=== PATIENT | male | born 1955 | race Caucasian/White ===

== ENCOUNTER → 2020-08-12 14:46 | Outpatient (BNVA) | payer MEDICARE, SELFPAY | PROVIDERS: PCP Internal Medicine; Referring Provider Internal Medicine; Visit Provider Surgery Vascular Surgery | DX: T87.81 Dehiscence of amputation stump (principal); L97.419 Non-pressure chronic ulcer of right heel and midfoot with unspecified severity; Z89.512 Acquired absence of left leg below knee | CPT/HCPCS: 99212; 99213 ==

== ENCOUNTER → 2020-08-31 15:50 | Outpatient (BNVA) | payer MEDICARE, SELFPAY | PROVIDERS: PCP Internal Medicine; Visit Provider Surgery Vascular Surgery | DX: T81.89XD Other complications of procedures, not elsewhere classified, subsequent encounter (principal); S90.821D Blister (nonthermal), right foot, subsequent encounter; Z89.512 Acquired absence of left leg below knee | CPT/HCPCS: 99212 ==

== ENCOUNTER → 2020-09-28 11:52 | Outpatient (BNVA) | payer MEDICARE, SELFPAY | PROVIDERS: PCP Internal Medicine; Visit Provider Surgery Vascular Surgery | DX: L97.419 Non-pressure chronic ulcer of right heel and midfoot with unspecified severity (principal); Z89.512 Acquired absence of left leg below knee | CPT/HCPCS: 99212 ==

== ENCOUNTER → 2020-11-02 09:12 | Outpatient (BNVA) | payer MEDICARE, SELFPAY | PROVIDERS: PCP Internal Medicine; Visit Provider Surgery Vascular Surgery | DX: Z76.89 Persons encountering health services in other specified circumstances (principal) | CPT/HCPCS: 99212 ==

== ENCOUNTER → 2021-03-03 15:25 | Outpatient (BNVA) | payer MEDICARE, SELFPAY | PROVIDERS: PCP Internal Medicine; Visit Provider Surgery Vascular Surgery | DX: L97.419 Non-pressure chronic ulcer of right heel and midfoot with unspecified severity (principal); I73.9 Peripheral vascular disease, unspecified | CPT/HCPCS: 99212 ==

== ENCOUNTER 2021-04-07 14:24 | Outpatient (REF) | payer MEDICARE, SELFPAY ==
--- NOTE | ~2021-04-07 | US_ITS ---
EXAMINATION: US NONINVASIVE ASSESSMENT OF THE RIGHT LOWER EXTREMITY WITH ARTERIAL DUPLEX AND ANKLE BRACHIAL INDICES (ABIS) CLINICAL INFORMATION: Peripheral vascular disease unspecified COMPARISON: Ultrasound 06/03/2020 TECHNIQUE: Duplex Doppler techniques with waveform analysis and measurement of velocities in the common femoral, profunda femoris, superficial femoral, popliteal and tibial arteries were performed. In addition, ankle pulse volume recordings, ankle pressure measurements and ankle brachial indices were obtained of the right lower extremity arterial system. The study was performed only at rest. FINDINGS: NONINVASIVE ASSESSMENT OF THE ARTERIES OF RIGHT LOWER EXTREMITY WITH ABIs: Brachial blood pressure is measured as over 200. The technologist contacted the referring physician's office they are aware. RIGHT LEG: Ankle-brachial index: Uninterpretable secondary to vascular calcification. Ankle PVR: Dampened monophasic waveform. TANYA Reference: 0.9 - 1.4 = normal - no significant arterial disease 0.7 - 0.89 = mild peripheral arterial disease 0.51 - 0.69 = moderate peripheral arterial disease ? 0.50 = severe peripheral arterial disease On direct duplex there is prominent calcified plaque within the common femoral artery. RIGHT LOWER EXTREMITY DUPLEX ULTRASOUND: Common femoral artery (proximal to stenosis): 154 cm/s. Diastolic flow reversal: Present Common femoral artery (at stenosis): 241 cm/s. Diastolic flow reversal: Minimal to none Common femoral artery (distal to the stenosis): 144 cm/s Diastolic flow reversal: Absent Profunda femoris artery: 169 cm/s. Diastolic flow reversal: Absent Superficial femoral artery (proximal): 112 cm/s. Diastolic flow reversal: Minimal Superficial femoral artery (mid): 75 cm/s. Diastolic flow reversal: Absent Superficial femoral artery (distal): 66.4 cm/s. Diastolic flow reversal: Absent Proximal popliteal artery: 50.3 cm/s Diastolic flow reversal: Absent Mid to distal popliteal artery: 185 cm/s Diastolic flow reversal: Absent Posterior tibial artery: 26.7 cm/s Diastolic flow reversal: Absent Peroneal artery: Occluded US/US arterial duplex LE RT IMPRESSION: Uninterpretable TANYA secondary to noncompressible vessels. Dampened monophasic PVR waveform suggestive of proximal disease. Prominent calcified plaque resulting in severe stenosis of the common femoral artery with loss of diastolic flow reversal distal to the stenosis. Elevated flow velocity within the mid to distal popliteal artery suggestive of a moderate to severe stenosis. Occlusion of the peroneal artery.
== END 2021-04-07 14:25 | disposition home or self-care (01) ==
LOC: HO.US 14:24
PROVIDERS: Visit Provider Surgery Vascular Surgery
DX: I70.211 Atherosclerosis of native arteries of extremities with intermittent claudication, right leg (principal)
CPT/HCPCS: 93923; 93926

== ENCOUNTER → 2021-04-28 14:07 | Outpatient (BNVA) | payer MEDICARE, SELFPAY | PROVIDERS: PCP Internal Medicine; Visit Provider Surgery Vascular Surgery | DX: I73.9 Peripheral vascular disease, unspecified (principal); Z89.512 Acquired absence of left leg below knee; Z94.0 Kidney transplant status; Z98.890 Other specified postprocedural states; Z95.820 Peripheral vascular angioplasty status with implants and grafts; Z88.8 Allergy status to other drugs, medicaments and biological substances; Z91.048 Other nonmedicinal substance allergy status | CPT/HCPCS: 99212 ==

== ENCOUNTER → 2021-05-02 11:07 | Outpatient (BNVA) | payer MEDICARE, SELFPAY | PROVIDERS: PCP Internal Medicine; Visit Provider Internal Medicine Endocrinology, Diabetes & Metabolism | CPT/HCPCS: Q3014 ==

== ENCOUNTER 2021-06-15 13:16 | Outpatient (REF) | payer MEDICARE, SELFPAY ==
[2021-06-15 13:59] LABS: Basophils Percent Auto 0.2 % (0-2); Eosinophils Percent Auto 0.1 % (0-4); Hematocrit 32.5 % (42-52); Imm Gran Abs Auto 0.08 X10*3/uL (0.00-0.03); Imm Gran Pct Auto 0.6 % (0.0-0.4); Lymphocytes Absolute Auto 0.4 X10*3/uL (1.2-4.9); Lymphocytes Percent Auto 3.1 % (20-40); MANUAL DIFF FLAG SCAN; Mean Corpuscular HGB Conc 30.8 g/dl (31.0-36.0); Mean Corpuscular Volume 81.3 fL (80-98); Mean Platelet Volume 10.1 fL (9.4-12.4); Monocytes Absolute Auto 0.8 X10*3/uL (0.1-1.2); Monocytes Percent Auto 5.8 % (2-11); Neutrophils Absolute Auto 11.8 X10*3/uL (2.0-8.3); Neutrophils Percent Auto 90.2 % (45-73); Platelet Count 345 X10*3/uL (160-400); Red Cell Distribution Width 14.2 % (11.0-16.0); SCAN SMEAR FLAG 1
[2021-06-15 14:25] LABS: SLIDE REVIEW VERIFIED
[2021-06-15 14:53] LABS: Alanine Aminotransferase 9 U/L (0-40); Aspartate Amino Transferase 12 U/L (5-37); Cholesterol 179 mg/dL; HDL Cholesterol 38 mg/dL; LDL Cholesterol Calculated 106 mg/dl; Triglycerides 177 mg/dL
[2021-06-16 03:53] LABS: Estimated Average Glucose 217 mg/dL; Hemoglobin A1c % 9.2 %
== END 2021-06-15 13:17 | disposition home or self-care (01) ==
LOC: HO.HMGCLDS 13:16
PROVIDERS: PCP Internal Medicine; Visit Provider Internal Medicine
DX: E11.65 Type 2 diabetes mellitus with hyperglycemia (principal); E78.5 Hyperlipidemia, unspecified
CPT/HCPCS: 36415; 80061; 83036; 84450; 84460; 85025

== ENCOUNTER 2021-06-22 10:34 | Outpatient (RCR) | payer MEDICARE, SELFPAY ==
[2021-06-22 10:50] VITALS: BP 125/70; PULSE 91; RESP 14; TEMP 36.1; BMI 20.3
--- NOTE | 2021-06-22 11:22 | PM.HEMONCCN ---
Subjective - Subjective Chief complaint: Recurrent cancer Patient: new to practice Consult date: 06/22/21 Primary Care Provider: Adrienne Nava MD HPI - Consult Narrative Reason for consult: Recurrent squamous cell cancer Narrative: Farhad Srinivasan is a 66 year old male who has a history of recurrent skin cancers. He has had both squamous and basal cell carcinoma over the years. He has had multiple sites dermatological procedures, Moh's surgery for the same. 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 He has significant swelling of his lower jaw and pain. He has lost a lot of weight over 20 lb in the last 3-4 months. He is not doing very well but would like to know if any palliative treatment is possible. He does not want to undergo any more surgery for his cancer. His daughter is concerned that it may be metastatic and that he may developed obstruction of his airway. Review of Systems - Constitutional Reports as per HPI, Reports fatigue, Reports lack of energy, Reports malaise, Reports poor appetite - Cardiovascular Denies chest pain, Denies fainting - Respiratory Reports cough, Denies pain on inspiration, Denies pain with cough Oncology Screenings - ECOG Performance Status ECOG Performance Status: 3 [facility] Medical History: Medical History (Last Reviewed 06/22/21 @ 10:54 by Birdie Canada) Diabetes type 2, uncontrolled Diabetic nephropathy associated with type 2 diabetes mellitus Dyslipidemia [employer] (current) use of insulin Family History: Family History (Last Updated 06/22/21 @ 10:58 by Birdie Canada) Father Melanoma Prostate cancer Heart attack Mother Pancreatic cancer Brother No problems noted. Brother Substance use disorder Brother No problems noted. Daughter No problems noted. Son No problems noted. Surgical History: Surgical History (Last Updated 06/22/21 @ 10:55 by Birdie Canada) Cyst of pancreas History of renal transplant History of squamous cell carcinoma excision Hx of amputation below knee Hx of BKA Hx of cardiac cath Hx of radical prostatectomy Transplanted kidney previously removed due to complication, failure, rejection or infection Social History: Social History (Last Updated 06/22/21 @ 10:58 by Birdie Canada) Living Situation History: Housing: Condominium Alcohol History: Alcohol intake: former Alcohol History Details: Alcohol intake frequency: does not drink Tobacco History: Patient Tobacco Use Status: Never used Tobacco e-Cigarette/Vaping Use: Never Used Second Hand Smoke Exposure: No Substance Use History: Use of substances other than those prescribed or required for medical reasons: No 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 Home Medications and Allergies Home Medications Medication Instructions Recorded Confirmed Type amlodipine 5 mg tablet 10 mg PO DAILY tab 08/31/20 06/22/21 History blood sugar diagnostic #10 ea 08/31/20 06/22/21 History everolimus (immunosuppressive) 0.75 mg PO BID 08/31/20 06/22/21 History 0.75 mg tablet prednisone 5 mg tablet 5 mg PO DAILY 08/31/20 06/22/21 History pravastatin 80 mg tablet 80 mg PO BEDTIME 05/02/21 06/22/21 History gabapentin 100 mg capsule 100 mg PO BEDTIME 06/15/21 06/22/21 History loratadine 10 mg tablet 10 mg PO DAILY 06/15/21 06/22/21 History omeprazole 20 mg tablet,delayed 20 mg PO DAILY 06/15/21 06/22/21 History release ropinirole 0.25 mg tablet 0.25 mg PO BID 06/22/21 06/22/21 History Allergies Allergy/AdvReac Type Severity Reaction Status Date / Time adhesive [Adhesive] Allergy Mild RASH Verified 06/22/21 10:58 plastic tape Allergy Mild rash Uncoded 06/22/21 10:58 Physical Exam Vital signs: Vital Signs Temp 97.0 F 06/22/21 10:50 Pulse 91 06/22/21 10:50 Resp 14 06/22/21 10:50 BP 125/70 06/22/21 10:50 Intake & Output 06/21/21 06/22/21 06/22/21 18:59 06:59 18:59 Other: Weight 55.5 kg [place] Weight in Grams [id number] Weight 55.5 kg - Constitutional Present: chronically ill appearing - Routine HEENT Exam Eye: Present: EOMI Comments: He has dark slightly raised flat 2-3 cm skin lesion in the right cheek and a similar lesion in the submental region. His neck is swollen and feels hard in the submental and cervical regions. - Routine Neck Exam Present: lymphadenopathy. Absent: tracheal deviation - Routine Chest/Breast/Axilla Exam Axillae: Absent: lymphadenopathy - Routine Respiratory Exam Present: CTAB - Routine Cardiovascular Exam Cardiovascular: Present: S1, S2 - Routine Extremities Exam Absent: calf tenderness Comments: Left below-knee amputation - Routine Skin Exam Present: intact - Routine Neurological Exam Present: alert, oriented X3 Hem/Onc Consult Result - Labs CBC & Chem 7: 06/22/21 12:15 Assessment and Plan Patient Active problem list reviewed?: Yes (1) Recurrent squamous cell carcinoma Status: Acute Assessment and plan: 1. This is a 66-year-old male with recurrent squamous cell carcinoma involving right cheek and submental region. He has a history of recurrent basal cell and squamous cell carcinoma. He has now or local recurrence and this appears to be extensive based on his physical examination with lymphadenopathy. Patient is on chronic immunosuppression as he has had diabetes related renal disease, status post transplant. He has had extensive SCC of left chin status post resection with SLNB and neck flap reconstruction in 2019 by doctors Jonatan and Ulises. He declined radiation therapy. He is symptomatic from pain, weight loss, anorexia and difficulty swallowing. He has already been referred to ENT at [facility], he was encouraged to follow-up with them. I have ordered a PET-CT for staging. For his pain control I am starting him on morphine 15 mg p.o. Q 8 p.r.n.. Since he is claustrophobic I have sent a prescription for Xanax 2 mg to be taken 1 hour before the procedure/PET-CT. If he does have metastatic disease, palliative chemotherapy may be offered. He is not a candidate for immunotherapy as he has had organ transplant and is on immunosuppression. Blood work today shows stable kidney functions. He was advised about high-calorie nutritional supplements. If he has difficulty swallowing, he will need swallow evaluation. Patient at this time is leaning towards nonaggressive measures. We also discussed palliative hospice care. Further recommendations to follow. I thank you very much for this consultation. - Time Spent With Patient Time Spent with Patient (in minutes): 40
[2021-06-22 12:52] LABS: Alanine Aminotransferase 8 U/L (0-40); Albumin Level 3.2 g/dL (3.5-5.0); Alkaline Phosphatase 63 U/L (39-117); Anion Gap 13 (12-20); Aspartate Amino Transferase 13 U/L (5-37); Bilirubin Total 0.6 mg/dL (0.0-1.0); Blood Urea Nitrogen 13 mg/dL (9-16); Calcium 9.5 mg/dL (8.4-10.2); Carbon Dioxide 27 mmol/L (22-29); Chloride 99 mmol/L (96-108); Creatinine Clr Calc Pharmacy 70.2; Estimated Glomerular Filt Rate > 60; Glucose Random 170 mg/dL (60-115); Lactate Dehydrogenase 130 U/L (118-273); Potassium 4.4 mmol/L (3.3-5.1); Sodium 135 mmol/L (135-145); Total Protein 6.2 g/dL (6.5-8.0)
--- NOTE | 2021-06-22 16:10 | MHC.HEMONCMA ---
Patient came in for a consult for skin cancer, states he is very tired. Clinical summary was reviewed and updated. Patient had labs and will return in 2 weeks for a follow up. Dr Vasquez ordered a PET scan, I sent order to [facility]- awaiting a date/time.
== END 2021-06-27 | disposition home or self-care (01) ==
LOC: HO.ONC 10:34
PROVIDERS: PCP Internal Medicine; Referring Provider Internal Medicine; Visit Provider Internal Medicine
DX: C44.329 Squamous cell carcinoma of skin of other parts of face (principal); R59.1 Generalized enlarged lymph nodes; E11.29 Type 2 diabetes mellitus with other diabetic kidney complication; Z79.899 Other long term (current) drug therapy; Z85.828 Personal history of other malignant neoplasm of skin; Z94.0 Kidney transplant status
CPT/HCPCS: 36415; 80053; 82378; 83615; 99204

== ENCOUNTER 2021-06-26 10:15 | Inpatient (IN) | payer MEDICARE, SELFPAY ==
--- NOTE | ~2021-06-26 | CT_ITS ---
EXAMINATION: CT HEAD WITHOUT CONTRAST CLINICAL INFORMATION: Slurred speech COMPARISON: None TECHNIQUE: Contiguous axial imaging was performed from the skull base to vertex without intravenous administration of contrast. This CT examination was performed using dose optimization techniques as appropriate, variously including the following: *Automated exposure control *Adjustment of mA and/or kV according to patient size (this includes techniques or standardized protocols for targeted exams where dose is matched to indication/reason for exam; i.e. extremities or head) *Use of iterative reconstruction technique DLP: 708 mGy-cm FINDINGS: There is no evidence of acute intracranial hemorrhage or edematous territorial infarction. No abnormal mass effect or midline shift is seen. Rivera to white matter differentiation is well preserved. No extra-axial fluid collections are identified. The ventricles are normal in size. Mild periventricular deep white matter hypodensities suggesting chronic microangiopathy changes.. The osseous structures and soft tissues are normal. The mastoid air cells and visualized portions of the paranasal sinuses are well aerated. CT/CT head/brain wo con IMPRESSION: No CT evidence of acute intracranial hemorrhage or edematous territorial infarction..
--- NOTE | ~2021-06-26 | CT_ITS ---
EXAMINATION: CT SOFT TISSUE NECK WITH CONTRAST CLINICAL INFORMATION: Worsening masses. Inability to swallow. COMPARISON: None TECHNIQUE: Following the administration of 100 mL of Omnipaque 300 intravenous contrast, helical imaging was performed in the axial plane with generation of coronal and sagittal reformatted images. This CT examination was performed using dose optimization techniques as appropriate, variously including the following: *Automated exposure control *Adjustment of mA and/or kV according to patient size (this includes techniques or standardized protocols for targeted exams where dose is matched to indication/reason for exam; i.e. extremities or head) *Use of iterative reconstruction technique DLP: 764 mGy-cm FINDINGS: Large confluent masses are seen involving the facial soft tissues, crayon painter spaces, and oral cavity. The conglomerate soft tissue measures on the order of 10.0 x 7.9 cm measured in the axial plane. Lesions extend to the skin surface with areas of superficial ulceration noted. There is central low attenuation within the lesions compatible with necrosis. The mandible is diffusely infiltrated and significantly eroded with multiple fractures seen. The lesion diffusely infiltrates the floor of mouth and oral tongue. The tongue base does not appear involved. The left palatine tonsillar fossa appears involved. Tumor extends to involve the preepiglottic space. Otherwise, no definite laryngeal mass is seen. The left submandibular gland is infiltrated with tumor. Submandibular and submental adenopathy is seen. Additional pathologic adenopathy is seen bilaterally at level 2. Tumor is seen infiltrating the left-sided strap musculature. The parotid glands are unremarkable. The thyroid gland is within normal limits. Numerous pulmonary nodules are seen within the upper lungs, not present on the 06/26/2020 exam concerning for metastatic disease. The largest nodule seen in the right upper lobe measures up to 8 mm. No enlarged upper mediastinal lymph nodes are seen. The major neck vessels are patent with atheromatous changes noted. The imaged portions of the intracranial contents are within normal limits. No definite destructive changes seen within the spine. CT/CT soft tissue neck w con IMPRESSION: Extensive large confluent mass is seen involving the facial soft tissues, crayon painter spaces, and oral cavity. Tumor measures on the order of 10.0 x 7.9 cm. Significant infiltration with erosion of the mandible with multiple pathologic fractures. Adenopathy seen in the submental and submandibular stations as well as bilaterally level 2 and within the strap musculature. Numerous abnormal pulmonary nodules have developed compared with 06/26/2020 exam concerning for metastatic disease.
--- NOTE | ~2021-06-26 | XR_ITS ---
EXAMINATION: XR FOOT, RIGHT CLINICAL INFORMATION: Bony erosion. Decubitus ulcer. COMPARISON: None TECHNIQUE: 2 views of the right foot. FINDINGS: Bones are normal anatomic alignment with no acute fracture or dislocation. No bony destructive lesions seen. Mild degenerative changes noted. Extensive vascular calcification. Mild diffuse soft tissue swelling. No significant soft tissue gas or radiopaque foreign body. XR/XR foot RT 2V IMPRESSION: Soft tissue swelling but no acute bony abnormality appreciated
--- NOTE | ~2021-06-26 | XR_ITS ---
EXAMINATION: XR CHEST CLINICAL INFORMATION: Weakness COMPARISON: Previous chest x-ray most recent June 2020 TECHNIQUE: Frontal view of the chest was obtained. FINDINGS: The cardiac and mediastinal contours are stable. There are increased linear markings in the right upper lung questionable for atelectasis or small infiltrate. The lungs are otherwise clear. There is no pleural effusion or pneumothorax. There are surgical clips seen in the left upper arm. There are degenerative changes of the spine. XR/XR chest 1V IMPRESSION: Increased markings in the right upper lobe questionable for atelectasis or small infiltrate.
--- NOTE | ~2021-06-26 | CT_ITS ---
EXAMINATION: CT ANGIOGRAM OF THE CHEST WITH AND WITHOUT CONTRAST (CT PULMONARY ANGIOGRAM FOR PE) CLINICAL INFORMATION: Reason for Exam tachcyardia, hx of cancer, inverted t waves COMPARISON: 06/26/2020 TECHNIQUE: Prior to contrast administration, noncontrast localization images were obtained. Subsequently, multidetector volumetric imaging was performed from the thoracic inlet to below the diaphragms following the administration of 85 mL Omnipaque 350 intravenous contrast. No contrast reaction reported Sagittal, coronal, and MIP oblique sagittal reformatted images were obtained on the CT workstation, uploaded to PACS, and reviewed. This CT examination was performed using dose optimization techniques as appropriate, variously including the following: *Automated exposure control *Adjustment of mA and/or kV according to patient size (this includes techniques or standardized protocols for targeted exams where dose is matched to indication/reason for exam; i.e. extremities or head) *Use of iterative reconstruction technique Arms at sides results in artifact. Total exam dose-length product 337 mGy-cm FINDINGS: QUALITY OF STUDY/CONTRAST BOLUS: Satisfactory. PULMONARY ARTERIES: No central or segmental pulmonary emboli. The transverse main pulmonary artery diameter is increased compared with the aortic diameter and increase compared with the prior CT raising the possibility of pulmonary hypertension. There is bowing of the interventricular septum and reflux of contrast into the IVC indicating increased right heart pressures and right heart strain. Echocardiography is advised. Additional considerations for pulmonary hypertension include vasculitis or lymphangitic spread/metastatic spread of tumor. THORACIC AORTA: The aorta is normal in caliber and enhances uniformly with no aneurysm or dissection. There is moderate atherosclerotic peripheral vascular disease. There is moderate coronary disease LUNG: . There are multiple pulmonary nodules predominating in the right lung. The majority of pulmonary nodules are ill-defined and centrilobular. No tree-in-bud opacities are seen. These are likely centered on the pulmonary vessels. Leading considerations are granulomatous vasculitis such as Caryl's or vasculitic/metastatic spread of disease. Recommend immediate rheumatology evaluation with sedimentation rate and consultation. Some upper lobe nodules are more well-defined and there may be 2 discrete processes although this is considered less likely. There is minor consolidation in the left lower lobe and posterior segment left upper lobe periphery. This could represent coexistent airspace disease. Extensive consolidation noted last year at this time had largely resolved after 48 hours. PLEURA: No pleural effusion or pneumothorax. MEDIASTINUM: As noted above, there is evidence of increased right heart pressures and right heart strain. Echocardiography is advised. No mass or adenopathy. CHEST WALL/AXILLA: Persistent mild symmetric gynecomastia. OSSEOUS STRUCTURES: Minor degenerative spine disease. A tiny sclerotic focus in the T7 vertebral body likely a bone island. UPPER ABDOMEN: Cholelithiasis. Marked severe bilateral renal atrophy As noted above, contrast refluxes into the IVC indicating increased right heart pressures. CT/CT angio chest PE protocol IMPRESSION: 1. No pulmonary emboli. 2. Innumerable centrilobular ill-defined pulmonary nodules. Leading differential considerations are granulomatous vasculitis or malignancy (vasculitic/metastatic/spread of disease). Recommend vasculitis evaluation and workup. Tissue characterization may be required. 3. Developing pulmonary hypertension. Right heart strain. Recommend ECHO. 4. Minor foci of consolidation in the left lung could represent acute airspace disease. Recommend plain radiographic follow-up. VTE: negative This critical result was discussed with Dr. Vega at 4:35 PM on 06/26/2021 and it was ascertained that the content and urgency of the report was understood at the time of direct communication.
[2021-06-26 10:22] VITALS: BP 140/76; BP 161/72; PULSE 90; RESP 16; TEMP 36.6; O2SAT 100; BMI 21.3
--- NOTE | 2021-06-26 10:43 | ECG_ITS ---
Test Reason : GENERAL MEDICINE Blood Pressure : / mmHG Vent. Rate : 092 BPM Atrial Rate : 092 BPM P-R Int : 130 ms QRS Dur : 094 ms QT Int : 432 ms P-R-T Axes : 069 056 049 degrees QTc Int : 534 ms Poor data quality, interpretation may be adversely affected Normal sinus rhythm ST & T wave abnormality, consider anterior ischemia Prolonged QT Abnormal ECG When compared with ECG of 26-JUN-2020 17:47, Premature atrial complexes are no longer Present ST now depressed in Anterolateral leads T wave inversion now evident in Anterolateral leads Referred By: Tena Franklin Electronically Signed By:AURELIANO CARRASCO
--- NOTE | 2021-06-26 10:46 | ED.AMS ---
HPI - Altered Mental Status General Chief Complaint: General Medical Stated Complaint: ?ams Time Seen by Provider: 06/26/21 10:42 Source: patient and EMS Mode of arrival: EMS Limitations: no limitations History of Present Illness MD complaint: other (weakness, lethargy, poor PO intake, increase in size in masses on face) Onset (ago): month(s) Timing confirmed by: family member Severity: moderate Consistency of symptoms: getting Worse Context: cancer (recurrent squamous cell carcinoma now with worrisom features in mouth and neck saw Dr. Vasquez on 06/[address] scan Sunday) Associated symptoms: loss of appetite, malaise and weakness Related Data Home Medications Medication Instructions Recorded Confirmed amlodipine 5 mg tablet 10 mg PO DAILY tab 08/31/20 06/22/21 blood sugar diagnostic #10 ea 08/31/20 06/22/21 everolimus (immunosuppressive) 0.75 mg PO BID 08/31/20 06/22/21 0.75 mg tablet prednisone 5 mg tablet 5 mg PO DAILY 08/31/20 06/22/21 pravastatin 80 mg tablet 80 mg PO BEDTIME 05/02/21 06/22/21 gabapentin 100 mg capsule 100 mg PO BEDTIME 06/15/21 06/22/21 loratadine 10 mg tablet 10 mg PO DAILY 06/15/21 06/22/21 omeprazole 20 mg tablet,delayed 20 mg PO DAILY 06/15/21 06/22/21 release ropinirole 0.25 mg tablet 0.25 mg PO BID 06/22/21 06/22/21 Previous Rx's Medication Instructions Recorded FreeStyle Lite Strips (blood sugar #450 ea NS 03/15/21 diagnostic) insulin aspart U-100 100 unit/mL 7 - 10 unit SUBCUT TID 90 Days #30 05/02/21 (3 mL) subcutaneous pen (Novolog ml Flexpen U-100 Insulin aspart) pen needle, diabetic 32 gauge x #400 ea 05/02/21 (BD Ale 2nd Gen Pen Needle) Basaglar KwikPen U-100 Insulin 100 17 unit SUBCUT QAM 90 Days #30 ml 05/04/21 unit/mL (3 mL) subcutaneous NS (insulin glargine) Magic Mouthwash 10 ml PO QID #240 ml 06/10/21 Diphen/Lido/Antacid 1:1:1 240 mL suspension alprazolam 2 mg tablet 2 mg PO DAILY #10 tab 06/22/21 morphine 15 mg immediate release 15 mg PO Q8H PRN #60 tab 06/22/21 tablet Allergies Allergy/AdvReac Type Severity Reaction Status Date / Time adhesive [Adhesive] Allergy Mild RASH Verified 06/22/21 10:58 plastic tape Allergy Mild rash Uncoded 06/22/21 10:58 Review of Systems Review of Systems: Constitutional : pos Weight loss, No Fever, No Chills, pos Fatigue, pos Malaise ENT/Mouth : pos sore throat, No Rhinorrhea, pos intra oral swelling Eyes: No Eye Pain, No Swelling, No Redness Cardiovascular : No Chest Pain, No SOB, No Dyspnea on Exertion, No Orthopnea, No Edema, No Palpitations Respiratory : No Cough, No Sputum, No Wheezing Gastrointestinal : No Nausea, No Vomiting, No Diarrhea, No Constipation, No abdominal Pain, No Hematochezia, No Melena Genitourinary : No Dysuria, No Urinary Frequency, No Hematuria, Musculoskeletal : No joint pain, No Myalgias, No Joint Swelling Skin : No Skin Lesions, No rash Neuro : pos Weakness, No Numbness, No Dizziness, No Headache Psych : No Anxiety/Panic, No Depression Heme/Lymph: No Bruising, No Bleeding,No Lymphadenopathy Endocrine : No Polyuria, No Polydipsia All other systems reviewed and are negative [facility] Past Medical History Attestation statement: The following information was validated with the patient. 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 Brother Substance use disorder Brother No problems noted. Daughter No problems noted. Son No problems noted. Social History Social History Housing: Condominium Alcohol intake: never Patient Tobacco Use Status: Never used Tobacco e-Cigarette/Vaping Use: Never Used Second Hand Smoke Exposure: No Use of substances other than those prescribed or required for medical reasons: No Advance Directives: No Advance Directives Information Provided: No service: Yes Current occupational status: retired Physical Exam Vital Signs: Vital Signs: Last Vital Signs Temp 97.8 F 06/26/21 10:22 Pulse 98 06/26/21 14:27 Resp 22 H 06/26/21 14:27 BP 137/62 06/26/21 14:27 Pulse Ox 96 06/26/21 14:27 Body Mass Index 21.3 Appearance: Alert. Oriented X3. Anxious mild acute distress. Eyes: Pupils equal, round and reactive to light. ENT: Pharynx bilateral submandibular swelling (almost looks like mumps) swelling of both cheeks, dry mildly swollen red tongue, + trismus he cannot open for me Neck: Normal inspection. Neck supple. CVS: tachycardic heart rate and rhythm. Pulses normal. Respiratory: No respiratory distress. Breath sounds normal. Abdomen: Soft and nontender. Skin: Skin warm and dry. Normal skin color. Normal skin turgor. Extremities: No lower extremity edema. R foot dry ulcers noted no signs of cellulitis Neuro: Oriented X 3. No motor deficit. No sensory deficit. Course Course Course Narrative: given diffuse t wave inversions will obtain CTA for PE given malignancy/tachycardia signed out to Dr. Vega pending CT scans at this time, suspect tachycardia and lactic acidosis due to dehydration and not infection or severe sepsis MDM - Altered Mental Status MDM Narrative Medical decision making narrative: 66 yo male with hx of PVD, DM, HLD, recurrent squamous cell carcinoma now with months of worsening facial swelling with concern for mets to bone and lymph nodes, he is getting more and more weak losing weight and not eating/drinking. Today was brought in because he was just stuck sitting in his WC at home. He recently saw Dr. Vasquez and plan is for PET-CT scan on Sunday and possible palliative treatments. The patient has declined any further surgical procedures. Lab Data Result diagrams: 06/26/21 11:35 06/26/21 11:35 Labs: Lab Results 06/26/21 06/26/21 06/26/21 Range/Units 11:34 11:34 11:34 WBC (4.8-10.8) X10*3/uL RBC (4.60-5.80) X10*6/uL Hgb (14.0-18.0) g/dl Hct (42-52) % MCV (80-98) fL MCH (27.0-33.0) pg MCHC (31.0-36.0) g/dl RDW (11.0-16.0) % Plt Count (160-400) X10*3/uL MPV (9.4-12.4) fL Immature Gran % (Auto) (0.0-0.4) % Neut % (Auto) (45-73) % Lymph % (Auto) (20-40) % Alpine % (Auto) (2-11) % Eos % (Auto) (0-4) % Baso % (Auto) (0-2) % Lymph # (Auto) (1.2-4.9) X10*3/uL Alpine # (Auto) (0.1-1.2) X10*3/uL Eos # (Auto) (0.0-0.4) X10*3/uL Baso # (Auto) (0.0-0.2) X10*3/uL Abs Immat Gran (auto) (0.00-0.03) X10*3/uL Absolute Neuts (auto) (2.0-8.3) X10*3/uL Absolute Nucleated RBC (0.0-0.012) X10*3/uL Nucleated RBC % (auto) (0.0-0.2) /100WBC PT (9.9-13.0) SEC INR (0.9-1.1) APTT (24.1-38.0) SEC VBG pH (7.32-7.43) VBG pCO2 mmHg VBG pO2 mmHg VBG HCO3 (22-26) mmol/L VBG O2 Saturation % VBG Base Excess mmol/L Sodium (135-145) mmol/L Potassium (3.3-5.1) mmol/L Chloride (96-108) mmol/L Carbon Dioxide (22-29) mmol/L Anion Gap (12-20) BUN (9-16) mg/dL Creatinine (0.5-1.4) mg/dL Estim Creat Clear Calc Estimated GFR Random Glucose (60-115) mg/dL Lactic Acid 2.6 H* (0.5-2.0) mmol/L Lactic Acid Fup @ 2Hr (0.5-2.0) mmol/L Calcium (8.4-10.2) mg/dL Magnesium (1.6-2.6) mg/dL Total Bilirubin (0.0-1.0) mg/dL Direct Bilirubin (0.0-0.5) mg/dL AST (5-37) U/L ALT (0-40) U/L Alkaline Phosphatase (39-117) U/L Ammonia 23 (13-55) umol/L Total Creatine Kinase (38-174) U/L Troponin I High Sens 6.9 (<3.5-35.0) ng/L Total Protein (6.5-8.0) g/dL Albumin (3.5-5.0) g/dL Lipase (8-78) U/L TSH (0.32-4.0) uIU/mL Ethyl Alcohol mg/dL COVID-19 (TENISHA) (Negative) COVID-19 Clin Com 06/26/21 06/26/21 06/26/21 Range/Units 11:34 11:35 11:35 WBC 11.1 H (4.8-10.8) X10*3/uL RBC 4.61 (4.60-5.80) X10*6/uL Hgb 11.3 L (14.0-18.0) g/dl Hct 36.7 L (42-52) % MCV 79.6 L (80-98) fL MCH 24.5 L (27.0-33.0) pg MCHC 30.8 L (31.0-36.0) g/dl RDW 14.3 (11.0-16.0) % Plt Count 427 H (160-400) X10*3/uL MPV 9.7 (9.4-12.4) fL Immature Gran % (Auto) 0.4 (0.0-0.4) % Neut % (Auto) 85.5 H (45-73) % Lymph % (Auto) 4.9 L (20-40) % Alpine % (Auto) 8.4 (2-11) % Eos % (Auto) 0.5 (0-4) % Baso % (Auto) 0.3 (0-2) % Lymph # (Auto) 0.5 L (1.2-4.9) X10*3/uL Alpine # (Auto) 0.9 (0.1-1.2) X10*3/uL Eos # (Auto) 0.1 (0.0-0.4) X10*3/uL Baso # (Auto) 0.0 (0.0-0.2) X10*3/uL Abs Immat Gran (auto) 0.04 H (0.00-0.03) X10*3/uL Absolute Neuts (auto) 9.5 H (2.0-8.3) X10*3/uL Absolute Nucleated RBC 0.000 (0.0-0.012) X10*3/uL Nucleated RBC % (auto) 0.0 (0.0-0.2) /100WBC PT (9.9-13.0) SEC INR (0.9-1.1) APTT (24.1-38.0) SEC VBG pH (7.32-7.43) VBG pCO2 mmHg VBG pO2 mmHg VBG HCO3 (22-26) mmol/L VBG O2 Saturation % VBG Base Excess mmol/L Sodium 138 (135-145) mmol/L Potassium 3.7 (3.3-5.1) mmol/L Chloride 98 (96-108) mmol/L Carbon Dioxide 25 (22-29) mmol/L Anion Gap 19 (12-20) BUN 18 H (9-16) mg/dL Creatinine 0.85 (0.5-1.4) mg/dL Estim Creat Clear Calc 70.5 Estimated GFR > 60 Random Glucose 143 H (60-115) mg/dL Lactic Acid (0.5-2.0) mmol/L Lactic Acid Fup @ 2Hr (0.5-2.0) mmol/L Calcium 10.3 H D (8.4-10.2) mg/dL Magnesium (1.6-2.6) mg/dL Total Bilirubin (0.0-1.0) mg/dL Direct Bilirubin (0.0-0.5) mg/dL AST (5-37) U/L ALT (0-40) U/L Alkaline Phosphatase (39-117) U/L Ammonia (13-55) umol/L Total Creatine Kinase 83 (38-174) U/L Troponin I High Sens (<3.5-35.0) ng/L Total Protein (6.5-8.0) g/dL Albumin (3.5-5.0) g/dL Lipase (8-78) U/L TSH (0.32-4.0) uIU/mL Ethyl Alcohol < 10 mg/dL COVID-19 (TENISHA) (Negative) COVID-19 Clin Com 06/26/21 06/26/21 06/26/21 Range/Units 11:35 11:35 11:35 WBC (4.8-10.8) X10*3/uL RBC (4.60-5.80) X10*6/uL Hgb (14.0-18.0) g/dl Hct (42-52) % MCV (80-98) fL MCH (27.0-33.0) pg MCHC (31.0-36.0) g/dl RDW (11.0-16.0) % Plt Count (160-400) X10*3/uL MPV (9.4-12.4) fL Immature Gran % (Auto) (0.0-0.4) % Neut % (Auto) (45-73) % Lymph % (Auto) (20-40) % Alpine % (Auto) (2-11) % Eos % (Auto) (0-4) % Baso % (Auto) (0-2) % Lymph # (Auto) (1.2-4.9) X10*3/uL Alpine # (Auto) (0.1-1.2) X10*3/uL Eos # (Auto) (0.0-0.4) X10*3/uL Baso # (Auto) (0.0-0.2) X10*3/uL Abs Immat Gran (auto) (0.00-0.03) X10*3/uL Absolute Neuts (auto) (2.0-8.3) X10*3/uL Absolute Nucleated RBC (0.0-0.012) X10*3/uL Nucleated RBC % (auto) (0.0-0.2) /100WBC PT 12.5 (9.9-13.0) SEC INR 1.1 (0.9-1.1) APTT 37.0 (24.1-38.0) SEC VBG pH (7.32-7.43) VBG pCO2 mmHg VBG pO2 mmHg VBG HCO3 (22-26) mmol/L VBG O2 Saturation % VBG Base Excess mmol/L Sodium (135-145) mmol/L Potassium (3.3-5.1) mmol/L Chloride (96-108) mmol/L Carbon Dioxide (22-29) mmol/L Anion Gap (12-20) BUN (9-16) mg/dL Creatinine (0.5-1.4) mg/dL Estim Creat Clear Calc Estimated GFR Random Glucose (60-115) mg/dL Lactic Acid (0.5-2.0) mmol/L Lactic Acid Fup @ 2Hr (0.5-2.0) mmol/L Calcium (8.4-10.2) mg/dL Magnesium 1.8 (1.6-2.6) mg/dL Total Bilirubin 0.7 (0.0-1.0) mg/dL Direct Bilirubin 0.3 (0.0-0.5) mg/dL AST 16 (5-37) U/L ALT 7 (0-40) U/L Alkaline Phosphatase 74 (39-117) U/L Ammonia (13-55) umol/L Total Creatine Kinase (38-174) U/L Troponin I High Sens (<3.5-35.0) ng/L Total Protein 7.1 (6.5-8.0) g/dL Albumin 3.7 (3.5-5.0) g/dL Lipase 7 L (8-78) U/L TSH 2.75 (0.32-4.0) uIU/mL Ethyl Alcohol mg/dL COVID-19 (TENISHA) Negative (Negative) COVID-19 Clin Com See Note 06/26/21 06/26/21 Range/Units 11:45 13:56 WBC (4.8-10.8) X10*3/uL RBC (4.60-5.80) X10*6/uL Hgb (14.0-18.0) g/dl Hct (42-52) % MCV (80-98) fL MCH (27.0-33.0) pg MCHC (31.0-36.0) g/dl RDW (11.0-16.0) % Plt Count (160-400) X10*3/uL MPV (9.4-12.4) fL Immature Gran % (Auto) (0.0-0.4) % Neut % (Auto) (45-73) % Lymph % (Auto) (20-40) % Alpine % (Auto) (2-11) % Eos % (Auto) (0-4) % Baso % (Auto) (0-2) % Lymph # (Auto) (1.2-4.9) X10*3/uL Alpine # (Auto) (0.1-1.2) X10*3/uL Eos # (Auto) (0.0-0.4) X10*3/uL Baso # (Auto) (0.0-0.2) X10*3/uL Abs Immat Gran (auto) (0.00-0.03) X10*3/uL Absolute Neuts (auto) (2.0-8.3) X10*3/uL Absolute Nucleated RBC (0.0-0.012) X10*3/uL Nucleated RBC % (auto) (0.0-0.2) /100WBC PT (9.9-13.0) SEC INR (0.9-1.1) APTT (24.1-38.0) SEC VBG pH 7.43 (7.32-7.43) VBG pCO2 39 mmHg VBG pO2 29 mmHg VBG HCO3 26 (22-26) mmol/L VBG O2 Saturation 38.0 % VBG Base Excess 2.2 mmol/L Sodium (135-145) mmol/L Potassium (3.3-5.1) mmol/L Chloride (96-108) mmol/L Carbon Dioxide (22-29) mmol/L Anion Gap (12-20) BUN (9-16) mg/dL Creatinine (0.5-1.4) mg/dL Estim Creat Clear Calc Estimated GFR Random Glucose (60-115) mg/dL Lactic Acid (0.5-2.0) mmol/L Lactic Acid Fup @ 2Hr 1.1 (0.5-2.0) mmol/L Calcium (8.4-10.2) mg/dL Magnesium (1.6-2.6) mg/dL Total Bilirubin (0.0-1.0) mg/dL Direct Bilirubin (0.0-0.5) mg/dL AST (5-37) U/L ALT (0-40) U/L Alkaline Phosphatase (39-117) U/L Ammonia (13-55) umol/L Total Creatine Kinase (38-174) U/L Troponin I High Sens (<3.5-35.0) ng/L Total Protein (6.5-8.0) g/dL Albumin (3.5-5.0) g/dL Lipase (8-78) U/L TSH (0.32-4.0) uIU/mL Ethyl Alcohol mg/dL COVID-19 (TENISHA) (Negative) COVID-19 Clin Com ECG Data ECG #1: Attestation: I personally reviewed and interpreted this ECG as follows: ECG interpretation date: 06/26/21 ECG interpretation time: 11:51 Interpretation: Rate: 103 Rhythm: sinus tachycardia [place]: normal Normal P waves. Normal BILLY. Normal QRS complex. ST T wave : no VIKTORIYA, inverted t waves in anterior/lateral leads qTC: prolonged prior studies: changed from 2019 The study has been interpreted contemporaneously by me. . Discharge Plan Discharge Clinical Impression: Acidosis, lactic, Inverted T wave, Swelling, mass, or lump on face Patient Disposition: Admitted As Inpatient
[2021-06-26] MEDS: 0.9 % Sodium Chloride 500 ML IV (11:16)
[2021-06-26] MEDS: LORazepam 2 MG/ML VIAL 1 MG IVPUSH ×2 (11:16→15:37)
[2021-06-26 11:18] VITALS: PULSE 88; RESP 18; O2SAT 99
[2021-06-26 11:45] LABS: MANUAL DIFF FLAG NO
--- NOTE | 2021-06-26 11:46 | ECG_ITS ---
Test Reason : GENERAL MEDICINE Blood Pressure : / mmHG Vent. Rate : 103 BPM Atrial Rate : 103 BPM P-R Int : 162 ms QRS Dur : 088 ms QT Int : 396 ms P-R-T Axes : 039 065 082 degrees QTc Int : [address] & T wave abnormality, consider anterior ischemia Abnormal ECG When compared with ECG of 26-JUN-2021 10:59, No significant change was found Referred By: Arnaud Epperson Electronically Signed By:AURELIANO CARRASCO
[2021-06-26 11:48] LABS: Basophils Percent Auto 0.3 % (0-2); Eosinophils Absolute Auto 0.1 X10*3/uL (0.0-0.4); Eosinophils Percent Auto 0.5 % (0-4); Hematocrit 36.7 % (42-52); Hemoglobin 11.3 g/dl (14.0-18.0); Imm Gran Abs Auto 0.04 X10*3/uL (0.00-0.03); Imm Gran Pct Auto 0.4 % (0.0-0.4); Lymphocytes Absolute Auto 0.5 X10*3/uL (1.2-4.9); Lymphocytes Percent Auto 4.9 % (20-40); Mean Corpuscular HGB Conc 30.8 g/dl (31.0-36.0); Mean Corpuscular Hemoglobin 24.5 pg (27.0-33.0); Mean Corpuscular Volume 79.6 fL (80-98); Mean Platelet Volume 9.7 fL (9.4-12.4); Monocytes Absolute Auto 0.9 X10*3/uL (0.1-1.2); Monocytes Percent Auto 8.4 % (2-11); Neutrophils Absolute Auto 9.5 X10*3/uL (2.0-8.3); Neutrophils Percent Auto 85.5 % (45-73); Platelet Count 427 X10*3/uL (160-400); Red Blood Count 4.61 X10*6/uL (4.60-5.80); Red Cell Distribution Width 14.3 % (11.0-16.0); White Blood Count 11.1 X10*3/uL (4.8-10.8)
[2021-06-26 11:49] LABS: VBG Base Excess 2.2 mmol/L; VBG HCO3 26 mmol/L (22-26); VBG pCO2 39 mmHg; VBG pH 7.43 (7.32-7.43); VBG pO2 29 mmHg
[2021-06-26 11:49] LABS: Venous Blood Gas Refer to POC result
[2021-06-26] MEDS: Thiamine HCL 100 MG in 0.9 % Sodium Chloride 100 ML 202 MG IV (11:50)
[2021-06-26] MEDS: 0.9 % Sodium Chloride 1,000 ML 100 ML IVCONT (11:50)
[2021-06-26 11:52] LABS: INTERNATIONAL NORM RATIO 1.1 (0.9-1.1); Prothrombin Time 12.5 SEC (9.9-13.0)
[2021-06-26 11:57] LABS: Ammonia 23 umol/L (13-55)
[2021-06-26] MEDS: Folic Acid 1 MG in 0.9 % Sodium Chloride 50 ML 100.4 MG IV (11:58)
[2021-06-26 12:04] LABS: Ethanol < 10 mg/dL
[2021-06-26 12:06] LABS: Lactic Acid 2.6 mmol/L (0.5-2.0)
[2021-06-26 12:08] LABS: COVID-19 Test Negative (Negative)
[2021-06-26 12:09] LABS: Alanine Aminotransferase 7 U/L (0-40); Albumin Level 3.7 g/dL (3.5-5.0); Alkaline Phosphatase 74 U/L (39-117); Aspartate Amino Transferase 16 U/L (5-37); Bilirubin Direct 0.3 mg/dL (0.0-0.5); Bilirubin Total 0.7 mg/dL (0.0-1.0); Lipase 7 U/L (8-78); Magnesium 1.8 mg/dL (1.6-2.6); Total Protein 7.1 g/dL (6.5-8.0)
[2021-06-26 12:10] LABS: Anion Gap 19 (12-20); Blood Urea Nitrogen 18 mg/dL (9-16); Carbon Dioxide 25 mmol/L (22-29); Chloride 98 mmol/L (96-108); Creatinine Clr Calc Pharmacy 70.5; Estimated Glomerular Filt Rate > 60; Glucose Random 143 mg/dL (60-115); Potassium 3.7 mmol/L (3.3-5.1); Sodium 138 mmol/L (135-145)
[2021-06-26 12:13] LABS: Troponin-I High Sensitivity 6.9 ng/L (<3.5-35.0)
[2021-06-26 12:17] LABS: Calcium 10.3 mg/dL (8.4-10.2)
[2021-06-26 12:29] LABS: TSH reflex Free T4 2.75 uIU/mL (0.32-4.0)
[2021-06-26 13:41] LABS: Reflex Lactate? Lactic Acid Added
--- NOTE | 2021-06-26 14:08 | PC.NURSE ---
pt medicated initially upon arrival for restlessness, iv obtained and further medicated per emar. ivs placed in r hand and upper forearm, blood labs obtained and sent. awaiting image studies. daughter at bedside, concerned for metastasis of present cancer. pt continues to appear comfortable in stretcher, easily arousable to voice. call mayers within reach, plan of care reviewed w family.
[2021-06-26 14:10] LABS: ~Lactic Acid-LAB USE ONLY 1.1 mmol/L (0.5-2.0)
[2021-06-26 14:27] VITALS: BP 137/62; PULSE 98; RESP 22; O2SAT 96
--- NOTE | 2021-06-26 15:37 | PC.NURSE ---
pt given ativan in ct scan d/t inability to rest supine on table.
[2021-06-26] MEDS: iohexoL 350 MG/ML 100 ML INFUS..BTL IV (15:57)
[2021-06-26] MEDS: Piperacillin Sodium/Tazobactam 3.375 GM in 0.9 % Sodium Chloride 50 ML IV ×2 (16:58→19:46)
--- NOTE | 2021-06-26 17:19 | PC.NURSE ---
med rec completed at bedside w pt daughter
--- NOTE | 2021-06-26 18:36 | P.HPHOSP_ITS ---
History of Present Illness Date of Service: 06/26/21 Chief Complaint: lethargy ams 66M presented with lethargy, ams, inability to tolerate po, worsening RLE wounds. 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 he has ex pressed that he does not want tracheostomy or gastrostomy. plan was for PET this week, but likely treatement would be palliative. patient was brought in today as his overall condition has been declining, slurring his speech more, no energy, inability to eat or take care of himself properly. normally able to get around with wheelchair on his own and lives independently. Review of Systems Review of Systems: Constitutional: Denies fever, denies Chills Eyes: denies blurry vision ENT: see hpi CVS: denies chest pain Respiratory: see hpi GI: no abdominal pain : denies dysuria MSK: denies neck pain Skin: see hpi Neuro: denies specific motor weakness Psych: denies suicidal ideation Endocrine: denies heat/cold intolerance Hematologic: mouth bleeding Allergy: denies hives [facility] Medical History Diabetes type 2, uncontrolled Diabetic nephropathy associated with type 2 diabetes mellitus Dyslipidemia manager intermediate (current) use of insulin Family History (Updated 06/22/21 @ 10:58 by Birdie [place]) Father Melanoma Prostate cancer Heart attack Mother Pancreatic cancer Brother No problems noted. Brother Substance use disorder Brother No problems noted. Daughter No problems noted. Son No problems noted. Surgical History Cyst of pancreas History of renal transplant History of squamous cell carcinoma excision Hx of amputation below knee Hx of BKA Hx of cardiac cath Hx of radical prostatectomy Transplanted kidney previously removed due to complication, failure, rejection or infection Social History Housing: Condominium Alcohol intake: never Patient Tobacco Use Status: Never used Tobacco e-Cigarette/Vaping Use: Never Used Second Hand Smoke Exposure: No Use of substances other than those prescribed or required for medical reasons: No Advance Directives: No Advance Directives Information Provided: No service: Yes Current occupational status: retired Meds Allergies Allergy/AdvReac Type Severity Reaction Status Date / Time adhesive [Adhesive] Allergy Mild RASH Verified 06/22/21 10:58 plastic tape Allergy Mild rash Uncoded 06/22/21 10:58 Active Medications: Current Medications Generic Name Dose Route Start Last Admin Trade Name Freq PRN Reason Stop Dose Admin Amlodipine Besylate 10 mg 06/27/21 09:00 Amlodipine Besylate 5 Mg Tablet PO DAILY [facility] Protocol Dextrose 25 gm 06/26/21 18:32 Dextrose 50 % 25 Gm/50 Ml Vial IVPUSH Q15M PRN per Hypoglycemia Standing Ord. Protocol Gabapentin 100 mg 06/26/21 21:00 Gabapentin 100 Mg Capsule PO BEDTIME [facility] Glucose 15 gm 06/26/21 18:32 Glucose Gel 15 Gm Gel..Gram. PO Q15M PRN per Hypoglycemia Standing Ord. Protocol Sodium Chloride 1,000 mls @ 100 mls/hr 06/26/21 11:30 06/26/21 11:50 Ns IVCONT 100 mls/hr .Q10H BRYAN Administration Dextrose/Sodium Chloride 1,000 mls @ 80 mls/hr 06/26/21 18:45 D5ns IVCONT .[id number] [facility] Vancomycin HCl 1,000 mg/ 270 mls @ 270 mls/hr 06/27/21 09:00 Sodium Chloride IV Q24H [facility] Piperacillin Sod/Tazobactam 50 mls @ 100 mls/hr 06/27/21 00:00 Sod 2.25 gm/ Sodium Chloride IV Q6H [facility] Insulin Human Lispro 0 unit 06/26/21 21:00 Insulin Lispro 100 Unit/Ml 3 Ml Vial SUBCUT QIDACHS [facility] Protocol Loratadine 10 mg 06/27/21 09:00 Loratadine 10 Mg Tablet PO DAILY [facility] Morphine Sulfate 15 mg 06/26/21 18:32 Morphine Sulfate Immed Release 15 Mg Tablet PO Q8H PRN Pain Non-Formulary Medication 0.75 mg 06/26/21 21:00 Everolimus (Immunosuppressive) PO BID [facility] Omeprazole 20 mg 06/27/21 09:00 Omeprazole 20 Mg Capsule. PO DAILY [facility] Pharmacy Consult 1 each 06/26/21 16:48 Consult Rx Vancomycin Dosing MISCELLANE DAILY PRN Consult order Pharmacy Consult 1 each 06/26/21 18:32 Consult Rx Vancomycin Dosing MISCELLANE DAILY PRN Consult order Pravastatin Sodium 80 mg 06/26/21 21:00 Pravastatin Sodium 80 Mg Tablet PO BEDTIME BRYAN Prednisone 5 mg 06/27/21 09:00 Prednisone 5 Mg Tablet PO DAILY [facility] Ropinirole HCl 0.25 mg 06/26/21 21:00 Ropinirole Hcl 0.25 Mg Tablet PO BID [facility] Home Medications Medication Instructions Recorded Confirmed Last Taken Type amlodipine 5 mg tablet 10 mg PO DAILY tab 08/31/20 06/26/21 Unknown History blood sugar diagnostic #10 ea 08/31/20 06/26/21 Unknown History everolimus (immunosuppressive) 0.75 mg PO BID 08/31/20 06/26/21 Unknown History 0.75 mg tablet prednisone 5 mg tablet 5 mg PO DAILY 08/31/20 06/26/21 Unknown History pravastatin 80 mg tablet 80 mg PO BEDTIME 05/02/21 06/26/21 Unknown History gabapentin 100 mg capsule 100 mg PO BEDTIME 06/15/21 06/26/21 Unknown History loratadine 10 mg tablet 10 mg PO DAILY 06/15/21 06/26/21 Unknown History omeprazole 20 mg tablet,delayed 20 mg PO DAILY 06/15/21 06/26/21 Unknown History release ropinirole 0.25 mg tablet 0.25 mg PO BID 06/22/21 06/26/21 Unknown History Physical Exam Vital Signs and Narrative: Vital Signs: Last Vital Signs Temp 97.8 F 06/26/21 10:22 Pulse 98 06/26/21 14:27 Resp 22 H 06/26/21 14:27 BP 137/62 06/26/21 14:27 Pulse Ox 96 06/26/21 14:27 Body Mass Index 21.3 General: obtunded, ill appearing HEENT: large mass on right side of face, inability to fully close mouth, copious secretions Neck: as above CVS: S1, S2, RRR Resp: rhonchi Chest: non tender GI: soft, non tender, non distended : no CVA tenderness Skin: dry Extremities: no edema, left BKA, see pic for right foot Neuro: obtunded Psych: unable to assess Results Labs CBC and Chem 7: 06/26/21 11:35 06/26/21 11:35 Labs: Laboratory Results - last 24 hr 06/26/21 06/26/21 06/26/21 11:34 11:34 11:34 MCV MCH MCHC RDW Plt Count MPV Immature Gran % (Auto) Neut % (Auto) Lymph % (Auto) [place] % (Auto) Eos % (Auto) Baso % (Auto) Lymph # (Auto) [place] # (Auto) Eos # (Auto) Baso # (Auto) Abs Immat Gran (auto) Absolute Neuts (auto) Absolute Nucleated RBC Nucleated RBC % (auto) PT INR APTT VBG pH VBG pCO2 VBG pO2 VBG HCO3 VBG O2 Saturation VBG Base Excess Anion Gap Estim Creat Clear Calc Estimated GFR Random Glucose Lactic Acid 2.6 H* Lactic Acid Fup @ 2Hr Calcium Magnesium Total Bilirubin Direct Bilirubin AST ALT Alkaline Phosphatase Ammonia 23 Total Creatine Kinase Troponin I High Sens 6.9 Total Protein Albumin Lipase TSH Ethyl Alcohol COVID-19 (TENISHA) COVID-[employer] 06/26/21 06/26/21 06/26/21 11:34 11:35 11:35 MCV 79.6 L MCH 24.5 L MCHC 30.8 L RDW 14.3 Plt Count 427 H MPV 9.7 Immature Gran % (Auto) 0.4 Neut % (Auto) 85.5 H Lymph % (Auto) 4.9 L [place] % (Auto) 8.4 Eos % (Auto) 0.5 Baso % (Auto) 0.3 Lymph # (Auto) 0.5 L [place] # (Auto) 0.9 Eos # (Auto) 0.1 Baso # (Auto) 0.0 Abs Immat Gran (auto) 0.04 H Absolute Neuts (auto) 9.5 H Absolute Nucleated RBC 0.000 Nucleated RBC % (auto) 0.0 PT INR APTT VBG pH VBG pCO2 VBG pO2 VBG HCO3 VBG O2 Saturation VBG Base Excess Anion Gap 19 Estim Creat Clear Calc 70.5 Estimated GFR > 60 Random Glucose 143 H Lactic Acid Lactic Acid Fup @ 2Hr Calcium 10.3 H D Magnesium Total Bilirubin Direct Bilirubin AST ALT Alkaline Phosphatase Ammonia Total Creatine Kinase 83 Troponin I High Sens Total Protein Albumin Lipase TSH Ethyl Alcohol < 10 COVID-19 (TENISHA) COVID-19 [employer] 06/26/21 06/26/21 06/26/21 11:35 11:35 11:35 MCV MCH MCHC RDW Plt Count MPV Immature Gran % (Auto) Neut % (Auto) Lymph % (Auto) [place] % (Auto) Eos % (Auto) Baso % (Auto) Lymph # (Auto) [place] # (Auto) Eos # (Auto) Baso # (Auto) Abs Immat Gran (auto) Absolute Neuts (auto) Absolute Nucleated RBC Nucleated RBC % (auto) PT 12.5 INR 1.1 APTT 37.0 VBG pH VBG pCO2 VBG pO2 VBG HCO3 VBG O2 Saturation VBG Base Excess Anion Gap Estim Creat Clear Calc Estimated GFR Random Glucose Lactic Acid Lactic Acid Fup @ 2Hr Calcium Magnesium 1.8 Total Bilirubin 0.7 Direct Bilirubin 0.3 AST 16 ALT 7 Alkaline Phosphatase 74 Ammonia Total Creatine Kinase Troponin I High Sens Total Protein 7.1 Albumin 3.7 Lipase 7 L TSH 2.75 Ethyl Alcohol COVID-19 (TENISHA) Negative COVID-19 Clin Com See Note 06/26/21 06/26/21 11:45 13:56 MCV MCH MCHC RDW Plt Count MPV Immature Gran % (Auto) Neut % (Auto) Lymph % (Auto) [place] % (Auto) Eos % (Auto) Baso % (Auto) Lymph # (Auto) [place] # (Auto) Eos # (Auto) Baso # (Auto) Abs Immat Gran (auto) Absolute Neuts (auto) Absolute Nucleated RBC Nucleated RBC % (auto) PT INR APTT VBG pH 7.43 VBG pCO2 39 VBG pO2 29 VBG HCO3 26 VBG O2 Saturation 38.0 VBG Base Excess 2.2 Anion Gap Estim Creat Clear Calc Estimated GFR Random Glucose Lactic Acid Lactic Acid Fup @ 2Hr 1.1 Calcium Magnesium Total Bilirubin Direct Bilirubin AST ALT Alkaline Phosphatase Ammonia Total Creatine Kinase Troponin I High Sens Total Protein Albumin Lipase TSH Ethyl Alcohol COVID-19 (TENISHA) COVID-19 Clin Com Imaging Radiologist's Impressions: Impressions Chest X-Ray 06/26/21 10:44 IMPRESSION: Increased markings in the right upper lobe questionable for atelectasis or small infiltrate. Head CT 06/26/21 11:23 IMPRESSION: No CT evidence of acute intracranial hemorrhage or edematous territorial infarction.. Soft Tissue Neck CT 06/26/21 11:23 IMPRESSION: Extensive large confluent mass is seen involving the facial soft tissues, gastroenterology nurse spaces, and oral cavity. Tumor measures on the order of 10.0 x 7.9 cm. Significant infiltration with erosion of the mandible with multiple pathologic fractures. Adenopathy seen in the submental and submandibular stations as well as bilaterally level 2 and within the strap musculature. Numerous abnormal pulmonary nodules have developed compared with 06/26/2020 exam concerning for metastatic disease. Chest CTA 06/26/21 11:52 IMPRESSION: 1. No pulmonary emboli. 2. Innumerable centrilobular ill-defined pulmonary nodules. Leading differential considerations are granulomatous vasculitis or malignancy (vasculitic/metastatic/spread of disease). Recommend vasculitis evaluation and workup. Tissue characterization may be required. 3. Developing pulmonary hypertension. Right heart strain. Recommend ECHO. 4. Minor foci of consolidation in the left lung could represent acute airspace disease. Recommend plain radiographic follow-up. VTE: negative This critical result was discussed with Dr. Vega at 4:35 PM on 06/26/2021 and it was ascertained that the content and urgency of the report was understood at the time of direct communication. Foot X-Ray 06/26/21 16:48 IMPRESSION: Soft tissue swelling but no acute bony abnormality appreciated Assessment and Plan (1) Ulcer of right heel: Qualifiers: Non-pressure ulcer stage: unspecified non-pressure ulcer stage Q ualified Code(s): L97.419 - Non-pressure chronic ulcer of right heel and midfoot with unspecified severity Status: Acute 66M presented with failure to thrive and worsening RLE wounds failure to thrive metabolic encephalopathy, due to dehyrdation, due to dysphagia from head and neck cancer IVF patient not interested in tracheostomy or peg hospice eval right LE wounds empiric antibiotics, vascular eval renal transplant continue everlimus, prednisone DM sliding scale for now Quality Stroke Does the patient have a stroke diagnosis?: No VTE Prior VTE?: No VTE Risk Level:: Medical - moderate - high VTE Device Contraindication: Treatment Not Indicated VTE Drug Contraindication: N/A - Med Ordered
[2021-06-26 19:47] VITALS: BP 145/57; PULSE 95; RESP 18; O2SAT 96
[2021-06-26] MEDS: vancomycin HCL 1,500 MG in 0.9 % Sodium Chloride 500 ML 333.33 MG IV (20:38)
[2021-06-26 22:23] VITALS: BP 110/53; PULSE 89; RESP 20; TEMP 37.3; O2SAT 94
[2021-06-26 22:23] LABS: Glucose, Whole Blood 60 mg/dL (60-115)
[2021-06-26] MEDS: Enoxaparin Sodium 40 MG/0.4 ML SYRINGE SUBCUT (22:47)
[2021-06-26 23:59] LABS: Glucose, Whole Blood 166 mg/dL (60-115)
[2021-06-27] MEDS: Dextrose 5 % and 0.9 % NaCl 1,000 ML 80 ML IVCONT (00:33)
[2021-06-27] MEDS: Piperacillin Sodium/Tazobactam 3.375 GM in 0.9 % Sodium Chloride 50 ML IV ×2 (02:58→08:35)
[2021-06-27 03:23] VITALS: BP 131/63; PULSE 76; RESP 18; TEMP 36.4; O2SAT 99
[2021-06-27 05:05] LABS: Glucose Urine UA NEG (NEG); Leukocyte Esterase Urine NEG (NEG); Nitrite Urine NEG (NEG); UACC Culture Trigger NO; Urine Blood 2+ (NEG); Urine Ketones NEG (NEG); Urine Protein TRACE MG/DL (NEG-TRACE)
[2021-06-27 05:08] LABS: Appearance Urine HAZY; Color Urine STRAW
[2021-06-27 05:13] LABS: Bacteria Urine 1+ /LPF; RBC Urine 50-75 /HPF (0); Squamous Epithelial Cell Urine 1+ /LPF
[2021-06-27 05:22] LABS: Hematocrit 30.3 % (42-52); Hemoglobin 9.1 g/dl (14.0-18.0); Mean Corpuscular Hemoglobin 24.4 pg (27.0-33.0); Mean Corpuscular Volume 81.2 fL (80-98); Mean Platelet Volume 10.3 fL (9.4-12.4); Platelet Count 285 X10*3/uL (160-400); Red Blood Count 3.73 X10*6/uL (4.60-5.80); Red Cell Distribution Width 14.6 % (11.0-16.0)
[2021-06-27 05:37] LABS: Anion Gap 12 (12-20); Blood Urea Nitrogen 9 mg/dL (9-16); Carbon Dioxide 24 mmol/L (22-29); Chloride 107 mmol/L (96-108); Creatinine Clr Calc Pharmacy 77.9; Estimated Glomerular Filt Rate > 60; Glucose Random 157 mg/dL (60-115); Potassium 3.5 mmol/L (3.3-5.1); Sodium 139 mmol/L (135-145)
[2021-06-27 05:41] LABS: Creatinine Clr Calc Pharmacy 77.9; Estimated Glomerular Filt Rate > 60
[2021-06-27 06:57] VITALS: BP 146/65; PULSE 79; RESP 18; TEMP 36.4; O2SAT 95
[2021-06-27 07:33] LABS: Glucose, Whole Blood 174 mg/dL (60-115)
[2021-06-27] MEDS: Insulin Lispro 100 UNIT/ML 3 ML VIAL SUBCUT (08:34)
[2021-06-27] MEDS: 0.9 % Sodium Chloride Flush 3 ML SYRINGE IVFLUSH ×3 (08:38→21:23)
[2021-06-27] MEDS: vancomycin HCL 750 MG in 0.9 % Sodium Chloride 250 ML 265 MG IV (08:57)
--- NOTE | 2021-06-27 09:55 | PM.CNGS ---
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 He has apparently lost a significant amount of weight, having increased difficulty in speaking and overall lack of energy. He previously expressed his wishes not to have tracheostomy or gastrostomy although now apparently has changes mind and is interested in gastrostomy tube for feeding. Review of Systems Review of Systems: Yes all other systems are reviewed and are negative Constitutional: Constitutional: Reports malaise, Reports poor appetite and Reports weight loss ENT: Reports mouth pain, Reports neck mass and Reports sore throat Cardiovascular: Cardiovascular: Denies chest pain, Denies rapid heart rate, Denies irregular heart rhythm and Denies dyspnea Respiratory: Respiratory: Denies chest congestion, Denies cough and Denies dyspnea Gastrointestinal: Gastrointestinal: Denies abdominal pain, Denies nausea and Denies vomiting Integumentary/Breasts: Skin/Breast: Reports as per [facility] Past Medical History Medical History Diabetes type 2, uncontrolled Diabetic nephropathy associated with type 2 diabetes mellitus 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 Brother Substance use disorder Brother No problems noted. Daughter No problems noted. Son No problems noted. Surgical History Surgical History Cyst of pancreas History of renal transplant History of squamous cell carcinoma excision Hx of amputation below knee Hx of BKA Hx of cardiac cath Hx of radical prostatectomy Transplanted kidney previously removed due to complication, failure, rejection or infection Social History Social History Household Members: None Housing: Apartment Alcohol intake: never Patient Tobacco Use Status: Never used Tobacco e-Cigarette/Vaping Use: Never Used Second Hand Smoke Exposure: No Use of substances other than those prescribed or required for medical reasons: No Currently Displaying Signs/Symptoms of Drug Intoxication Withdrawal: No Have you been hit, kicked, punched, or otherwise hurt by someone within the past year? If so, by whom?: No Do you feel safe in your current relationship?: No Current Relationship Is there a partner from a previous relationship who is making you feel unsafe now?: No Are you made to feel afraid or neglected: No Spiritual Healthcare Practices: none reported. daughter at bedside and responsible for providing info in this assessment Advance Directives: No Advance Directives Information Provided: No Do you have thoughts of harming others: None Do you have a plan to hurt others: No Plan Recently lost weight without trying: Unsure How much weight loss: Unsure Eating poorly because of decreased appetite: No Nutrition screen score: 4 Nutrition Risks: Difficulty swallowing service: Yes Current occupational status: retired Meds Allergies Allergy/AdvReac Type Severity Reaction Status Date / Time adhesive [Adhesive] Allergy Mild RASH Verified 06/22/21 10:58 plastic tape Allergy Mild rash Uncoded 06/22/21 10:58 Active Medications: Current Medications Generic Name Dose Route Start Last Admin Trade Name Freq PRN Reason Stop Dose Admin Amlodipine Besylate 10 mg 06/27/21 09:00 Amlodipine Besylate 5 Mg Tablet PO DAILY BRYAN Protocol Dextrose 25 gm 06/26/21 18:32 06/26/21 22:41 Dextrose 50 % 25 Gm/50 Ml Vial IVPUSH 25 gm Q15M PRN Administration per Hypoglycemia Standing Ord. Protocol Enoxaparin Sodium 40 mg 06/26/21 20:00 06/26/21 22:47 Enoxaparin Sodium 40 Mg/0.4 Ml Syringe SUBCUT 40 mg Q24H BRYAN Administration Gabapentin 100 mg 06/26/21 21:00 06/26/21 23:06 Gabapentin 100 Mg Capsule PO Not Given BEDTIME BRYAN Glucose 15 gm 06/26/21 18:32 Glucose Gel 15 Gm Gel..Gram. PO Q15M PRN per Hypoglycemia Standing Ord. Protocol Dextrose/Sodium Chloride 1,000 mls @ 80 mls/hr 06/26/21 18:45 06/27/21 09:02 D5ns IVCONT Not Given .[id number] BRYAN Piperacillin Sod/Tazobactam 50 mls @ 100 mls/hr 06/26/21 20:00 06/27/21 08:35 Sod 3.375 gm/ Sodium Chloride IV 100 mls/hr Q6H BRYAN Administration Vancomycin HCl 750 mg/ Sodium 265 mls @ 265 mls/hr 06/27/21 08:00 06/27/21 08:57 Chloride IV 265 mls/hr Q12H [facility] Administration Insulin Human Lispro 0 unit 06/26/21 21:00 06/27/21 08:34 Insulin Lispro 100 Unit/Ml 3 Ml Vial SUBCUT 2 unit QIDACHS [facility] Administration Protocol Loratadine 10 mg 06/27/21 09:00 Loratadine 10 Mg Tablet PO DAILY [facility] Morphine Sulfate 15 mg 06/26/21 18:32 Morphine Sulfate Immed Release 15 Mg Tablet PO Q8H PRN Pain Patient Own Med ( 1 each 06/27/21 09:00 Everolimus 0.75mg) PO BID [facility] Omeprazole 20 mg 06/27/21 09:00 Omeprazole 20 Mg Capsule. PO DAILY [facility] Pharmacy Consult 1 each 06/26/21 18:32 Consult Rx Vancomycin Dosing MISCELLANE DAILY PRN Consult order Pravastatin Sodium 80 mg 06/26/21 21:00 06/26/21 23:06 Pravastatin Sodium 80 Mg Tablet PO Not Given BEDTIME [facility] Prednisone 5 mg 06/27/21 09:00 Prednisone 5 Mg Tablet PO DAILY [facility] Ropinirole HCl 0.25 mg 06/26/21 21:00 06/26/21 23:06 Ropinirole Hcl 0.25 Mg Tablet PO Not Given BID [facility] Sodium Chloride 3 ml 06/27/21 00:00 06/27/21 08:38 0.9 % Sodium Chloride Flush 3 Ml Syringe IVFLUSH 3 ml QSHIFT [facility] Administration Home Medications Medication Instructions Recorded Confirmed Last Taken Type amlodipine 5 mg tablet 10 mg PO DAILY tab 08/31/20 06/26/21 Unknown History blood sugar diagnostic #10 ea 08/31/20 06/26/21 Unknown History everolimus (immunosuppressive) 0.75 mg PO BID 08/31/20 06/26/21 Unknown History 0.75 mg tablet prednisone 5 mg tablet 5 mg PO DAILY 08/31/20 06/26/21 Unknown History pravastatin 80 mg tablet 80 mg PO BEDTIME 05/02/21 06/26/21 Unknown History gabapentin 100 mg capsule 100 mg PO BEDTIME 06/15/21 06/26/21 Unknown History loratadine 10 mg tablet 10 mg PO DAILY 06/15/21 06/26/21 Unknown History omeprazole 20 mg tablet,delayed 20 mg PO DAILY 06/15/21 06/26/21 Unknown History release ropinirole 0.25 mg tablet 0.25 mg PO BID 06/22/21 06/26/21 Unknown History Physical Exam Vital Signs: Vital Signs: Last Vital Signs Temp 97.6 F 06/27/21 06:57 Pulse 79 06/27/21 06:57 Resp 18 06/27/21 06:57 BP 146/65 H 06/27/21 06:57 Pulse Ox 95 06/27/21 06:57 Body Mass Index 21.3 Const: Other: Patient is resting comfortably in bed, who secretions in mouth. Neck: Other: Large below the tumor in the neck and jaw. Resp: Effort & Inspection: normal respiratory effort GI: Palpation (GI): Soft to palpation, nontender and no guarding Skin: General skin exam: no rashes or lesions noted Results Labs Result diagrams: 06/27/21 04:44 06/27/21 04:43 Labs: Abnormal lab results 06/26/21 06/26/21 06/26/21 Range/Units 11:34 11:35 11:35 WBC 11.1 H (4.8-10.8) X10*3/uL RBC (4.60-5.80) X10*6/uL Hgb 11.3 L (14.0-18.0) g/dl Hct 36.7 L (42-52) % MCV 79.6 L (80-98) fL MCH 24.5 L (27.0-33.0) pg MCHC 30.8 L (31.0-36.0) g/dl Plt Count 427 H (160-400) X10*3/uL Neut % (Auto) 85.5 H (45-73) % Lymph % (Auto) 4.9 L (20-40) % Lymph # (Auto) 0.5 L (1.2-4.9) X10*3/uL Abs Immat Gran (auto) 0.04 H (0.00-0.03) X10*3/uL Absolute Neuts (auto) 9.5 H (2.0-8.3) X10*3/uL BUN 18 H (9-16) mg/dL POC Glucose (60-115) mg/dL Random Glucose 143 H (60-115) mg/dL Lactic Acid 2.6 H* (0.5-2.0) mmol/L Calcium 10.3 H D (8.4-10.2) mg/dL Lipase (8-78) U/L Urine Blood (NEG) Urine RBC (0) /HPF 06/26/21 06/26/21 06/27/21 Range/Units 11:35 23:53 04:43 WBC (4.8-10.8) X10*3/uL RBC (4.60-5.80) X10*6/uL Hgb (14.0-18.0) g/dl Hct (42-52) % MCV (80-98) fL MCH (27.0-33.0) pg MCHC (31.0-36.0) g/dl Plt Count (160-400) X10*3/uL Neut % (Auto) (45-73) % Lymph % (Auto) (20-40) % Lymph # (Auto) (1.2-4.9) X10*3/uL Abs Immat Gran (auto) (0.00-0.03) X10*3/uL Absolute Neuts (auto) (2.0-8.3) X10*3/uL BUN (9-16) mg/dL POC Glucose 166 H (60-115) mg/dL Random Glucose 157 H (60-115) mg/dL Lactic Acid (0.5-2.0) mmol/L Calcium 8.0 L D (8.4-10.2) mg/dL Lipase 7 L (8-78) U/L Urine Blood (NEG) Urine RBC (0) /HPF 06/27/21 06/27/21 06/27/21 Range/Units 04:44 04:58 07:00 WBC (4.8-10.8) X10*3/uL RBC 3.73 L (4.60-5.80) X10*6/uL Hgb 9.1 L (14.0-18.0) g/dl Hct 30.3 L (42-52) % MCV (80-98) fL MCH 24.4 L (27.0-33.0) pg MCHC 30.0 L (31.0-36.0) g/dl Plt Count (160-400) X10*3/uL Neut % (Auto) (45-73) % Lymph % (Auto) (20-40) % Lymph # (Auto) (1.2-4.9) X10*3/uL Abs Immat Gran (auto) (0.00-0.03) X10*3/uL Absolute Neuts (auto) (2.0-8.3) X10*3/uL BUN (9-16) mg/dL POC Glucose 174 H (60-115) mg/dL Random Glucose (60-115) mg/dL Lactic Acid (0.5-2.0) mmol/L Calcium (8.4-10.2) mg/dL Lipase (8-78) U/L Urine Blood 2+ H (NEG) Urine RBC 50-75 H (0) /HPF Short CBC 06/26/21 06/27/21 Range/Units 11:35 04:44 WBC 11.1 H 6.0 (4.8-10.8) X10*3/uL Hgb 11.3 L 9.1 L (14.0-18.0) g/dl Hct 36.7 L 30.3 L (42-52) % Plt Count 427 H 285 D (160-400) X10*3/uL BMP 06/26/21 06/27/21 06/27/21 11:35 04:43 04:43 Sodium 138 139 Potassium 3.7 3.5 Chloride 98 107 Carbon Dioxide 25 24 BUN 18 H 9 Creatinine 0.85 0.77 0.77 Calcium 10.3 H D 8.0 L D Cardiac Enzymes 06/26/21 Range/Units 11:35 Total Creatine Kinase 83 (38-174) U/L Liver Function 06/26/21 Range/Units 11:35 Total Bilirubin 0.7 (0.0-1.0) mg/dL Direct Bilirubin 0.3 (0.0-0.5) mg/dL AST 16 (5-37) U/L ALT 7 (0-40) U/L Alkaline Phosphatase 74 (39-117) U/L Albumin 3.7 (3.5-5.0) g/dL Urine 06/27/21 Range/Units 04:58 Urine Color STRAW Urine Appearance HAZY Urine pH 6.0 (5.0-8.0) Ur Specific [place] 1.020 (1.005-1.025) Urine Protein TRACE (NEG-TRACE) MG/DL Urine Glucose (UA) NEG (NEG) MG/DL All other labs normal. Assessment and Plan (1) Recurrent squamous cell carcinoma: Status: Acute Patient with a large squamous cell head neck tumor with evidence of metastasis to the lung. Patient expressed some interest in a gastrostomy tube this morning there for surgical consultation requested. I discussed this with the patient's daughter, Sivan, who is his healthcare proxy. She is concerned regarding the extent of his disease including metastatic disease, and feels the gastrostomy tube will prolong his suffering. I am also concerned regarding anesthesia for placement of the gastrostomy tube, which certainly would be difficult given the size of his head and neck tumor. Procedure would need to be done under general anesthesia therefore intubation would be required. She expressed understanding and wishes to hold off on surgery at this time. Please call if I could be of any further assistance. Procedures Date of Service Date of Service: 06/27/21
--- NOTE | 2021-06-27 10:50 | MHC.CM.PN ---
Addendum entered by Hayley Lanier 06/27/21 14:10: PT EVALUATED BY HOSPICE NURSE [facility] WHO REPORTS THEY WILL BE READY TO ADMIT PT TO SERVICE AT HOME TOMORROW ONCE THEY HAVE ALL NECESSARY DME DELIVERED. SHANNAN SPOKE WITH ANTONINA WHO IS INTERESTED IN ASSISTANCE [facility] TO DET[facility]MINE IF THEY WILL BE ABLE TO PROVIDE ANY HOME CARE SERVICES FOR THE PT. PT WILL DC HOME TOMORROW WITH [facility] Addendum entered by Hayley Lanier 06/27/21 11:21: SHANNAN RECEIVED A CALL FROM [facility] NURSE WHO INDICATED THE HOSPICE NURSE WAS CURRENTLY WITH A PT WHICH WOULD TAKE ABOUT AN HOUR. SHANNAN INFORMED THE PTS DAUGHTER WOULD BE CONTACTED SOON AFTER THAT. SHANNAN MET WITH PTS DAUGHTER AND INFORMED HER SHE SHOULD EXPECT THE CALL IN APPROX ONE HOUR. PTS DAUGHTER ALSO REPORTED SHE HAD CONTACTED THE HOSPITALIST TO DISCUSS DISCONTINUING PTS ABX. SHE IS ALSO INTERESTED IN PT BEING EVALUATED FOR GIP, CM INFORMED HER THE HOSPICE NURSE WOULD BE ABLE TO DO THIS WELL. Original Note: SHANNAN MET WITH PTS DAUGHTER ANTONINA, WHO WAS AT BEDSIDE. ANTONINA REPORTS SHE IS INTERESTED IN SPEAKING WITH HOSPICE. SHE HOPES TO BRING THE PT HOME AND WILL TAKE LA LEAVE TO PROVIDE HIS CARE. SHE IS ALSO AWARE SHE COULD HIRE HOME CARE, AGENCIES DISCUSSED, AND MAY BE ABLE TO GET SOME HOME CARE COVERAGE FROM [facility] THE PT IS 100 PERCENT CONNECTED. [facility]FERR[facility] SENT TO [facility], HOSPICE CONSULT REQUESTED
[2021-06-27 11:09] VITALS: BP 116/58; PULSE 79; RESP 18; TEMP 36.9; O2SAT 96
[2021-06-27 11:23] LABS: Glucose, Whole Blood 114 mg/dL (60-115)
--- NOTE | 2021-06-27 11:48 | HO.PM.IMPN ---
Subjective Subjective Date of Service: 06/27/21 Interval History: this morning wanted to have gastrostomy tube, but after discussion with daughter and dr Lawrence has opted against and is now interested in comfort measures only, he is having significant mouth pain. Cardiovascular Cardiovascular: Reports no additional cardiovascular complaints Respiratory Respiratory: Reports no additional respiratory complaints Physical Exam Vital Signs: Vital Signs: Last Vital Signs Temp 98.4 F 06/27/21 11:09 Pulse 79 06/27/21 11:09 Resp 18 06/27/21 11:09 BP 116/58 L 06/27/21 11:09 Pulse Ox 96 06/27/21 11:09 Body Mass Index 21.3 General: AO X 3, ill appearing, large mouth and jaw tumor Resp: rhonchi CVS: S1,S2,RRR GI: soft, non tender, non distended Neuro: motor grossly intact Psych: appropriate affect ext: left bka, right LE ulcers as previous described Objective Data Active Medications Gabapentin (Gabapentin 100 Mg Capsule) 100 mg PO BEDTIME [facility] Last Admin: 06/26/21 23:06 Dose: Not Given Documented by: KOKO Non-Admin Reason: NPO Morphine Sulfate (Morphine Sulfate Immed Release 15 Mg Tablet) 15 mg PO Q8H PRN PRN Reason: Pain Omeprazole (Omeprazole 20 Mg Capsule.) 20 mg PO DAILY [facility] Last Admin: 06/27/21 10:39 Dose: Not Given Documented by: TATE Non-Admin Reason: NPO Ropinirole HCl (Ropinirole Hcl 0.25 Mg Tablet) 0.25 mg PO BID [facility] Last Admin: 06/27/21 10:40 Dose: Not Given Documented by: TATE Non-Admin Reason: NPO Sodium Chloride (0.9 % Sodium Chloride Flush 3 Ml Syringe) 3 ml IVFLUSH QSHIFT [facility] Last Admin: 06/27/21 08:38 Dose: 3 ml Documented by: TATE Labs CBC & Chem 7: 06/27/21 04:44 06/27/21 04:43 Labs: Laboratory Results - last 24 hr 06/26/21 06/26/21 06/26/21 11:34 11:34 11:34 MCV MCH MCHC RDW Plt Count MPV Immature Gran % (Auto) Neut % (Auto) Lymph % (Auto) [place] % (Auto) Eos % (Auto) Baso % (Auto) Lymph # (Auto) [place] # (Auto) Eos # (Auto) Baso # (Auto) Abs Immat Gran (auto) Absolute Neuts (auto) Absolute Nucleated RBC Nucleated RBC % (auto) PT INR APTT VBG pH VBG pCO2 VBG pO2 VBG HCO3 VBG O2 Saturation VBG Base Excess Anion Gap Estim Creat Clear Calc Estimated GFR POC Glucose Random Glucose Lactic Acid 2.6 H* Lactic Acid Fup @ 2Hr Calcium Magnesium Total Bilirubin Direct Bilirubin AST ALT Alkaline Phosphatase Ammonia 23 Total Creatine Kinase Troponin I High Sens 6.9 Total Protein Albumin Lipase TSH Urine Color Urine Appearance Urine pH Ur Specific [place] Urine Protein Urine Glucose (UA) Urine Ketones Urine Blood Urine Nitrite Ur Leukocyte Esterase Urine RBC Urine WBC Ur Squamous Epith Cells Urine Bacteria Ethyl Alcohol COVID-19 (TENISHA) COVID-19 Ornicept 06/26/21 06/26/21 06/26/21 11:34 11:35 11:35 MCV 79.6 L MCH 24.5 L MCHC 30.8 L RDW 14.3 Plt Count 427 H MPV 9.7 Immature Gran % (Auto) 0.4 Neut % (Auto) 85.5 H Lymph % (Auto) 4.9 L [place] % (Auto) 8.4 Eos % (Auto) 0.5 Baso % (Auto) 0.3 Lymph # (Auto) 0.5 L [place] # (Auto) 0.9 Eos # (Auto) 0.1 Baso # (Auto) 0.0 Abs Immat Gran (auto) 0.04 H Absolute Neuts (auto) 9.5 H Absolute Nucleated RBC 0.000 Nucleated RBC % (auto) 0.0 PT INR APTT VBG pH VBG pCO2 VBG pO2 VBG HCO3 VBG O2 Saturation VBG Base Excess Anion Gap 19 Estim Creat Clear Calc 70.5 Estimated GFR > 60 POC Glucose Random Glucose 143 H Lactic Acid Lactic Acid Fup @ 2Hr Calcium 10.3 H D Magnesium Total Bilirubin Direct Bilirubin AST ALT Alkaline Phosphatase Ammonia Total Creatine Kinase 83 Troponin I High Sens Total Protein Albumin Lipase TSH Urine Color Urine Appearance Urine pH Ur Specific [place] Urine Protein Urine Glucose (UA) Urine Ketones Urine Blood Urine Nitrite Ur Leukocyte Esterase Urine RBC Urine WBC Ur Squamous Epith Cells Urine Bacteria Ethyl Alcohol < 10 COVID-19 (TENISHA) COVID-19 [employer] Com 0906/26/21 06/26/21 11:35 11:35 11:35 MCV MCH MCHC RDW Plt Count MPV Immature Gran % (Auto) Neut % (Auto) Lymph % (Auto) [place] % (Auto) Eos % (Auto) Baso % (Auto) Lymph # (Auto) [place] # (Auto) Eos # (Auto) Baso # (Auto) Abs Immat Gran (auto) Absolute Neuts (auto) Absolute Nucleated RBC Nucleated RBC % (auto) PT 12.5 INR 1.1 APTT 37.0 VBG pH VBG pCO2 VBG pO2 VBG HCO3 VBG O2 Saturation VBG Base Excess Anion Gap Estim Creat Clear Calc Estimated GFR POC Glucose Random Glucose Lactic Acid Lactic Acid Fup @ 2Hr Calcium Magnesium 1.8 Total Bilirubin 0.7 Direct Bilirubin 0.3 AST 16 ALT 7 Alkaline Phosphatase 74 Ammonia Total Creatine Kinase Troponin I High Sens Total Protein 7.1 Albumin 3.7 Lipase 7 L TSH 2.75 Urine Color Urine Appearance Urine pH Ur Specific [place] Urine Protein Urine Glucose (UA) Urine Ketones Urine Blood Urine Nitrite Ur Leukocyte Esterase Urine RBC Urine WBC Ur Squamous Epith Cells Urine Bacteria Ethyl Alcohol COVID-19 (TENISHA) Negative COVID-19 [employer] Com See Note 06/26/21 06/26/21 06/26/21 11:45 13:56 22:19 MCV MCH MCHC RDW Plt Count MPV Immature Gran % (Auto) Neut % (Auto) Lymph % (Auto) [place] % (Auto) Eos % (Auto) Baso % (Auto) Lymph # (Auto) [place] # (Auto) Eos # (Auto) Baso # (Auto) Abs Immat Gran (auto) Absolute Neuts (auto) Absolute Nucleated RBC Nucleated RBC % (auto) PT INR APTT VBG pH 7.43 VBG pCO2 39 VBG pO2 29 VBG HCO3 26 VBG O2 Saturation 38.0 VBG Base Excess 2.2 Anion Gap Estim Creat Clear Calc Estimated GFR POC Glucose 60 Random Glucose Lactic Acid Lactic Acid Fup @ 2Hr 1.1 Calcium Magnesium Total Bilirubin Direct Bilirubin AST ALT Alkaline Phosphatase Ammonia Total Creatine Kinase Troponin I High Sens Total Protein Albumin Lipase TSH Urine Color Urine Appearance Urine pH Ur Specific [place] Urine Protein Urine Glucose (UA) Urine Ketones Urine Blood Urine Nitrite Ur Leukocyte Esterase Urine RBC Urine WBC Ur Squamous Epith Cells Urine Bacteria Ethyl Alcohol COVID-19 (TENISHA) COVID-19 Clin Com 06/26/21 06/27/21 06/27/21 23:53 04:43 04:43 MCV MCH MCHC RDW Plt Count MPV Immature Gran % (Auto) Neut % (Auto) Lymph % (Auto) [place] % (Auto) Eos % (Auto) Baso % (Auto) Lymph # (Auto) [place] # (Auto) Eos # (Auto) Baso # (Auto) Abs Immat Gran (auto) Absolute Neuts (auto) Absolute Nucleated RBC Nucleated RBC % (auto) PT INR APTT VBG pH VBG pCO2 VBG pO2 VBG HCO3 VBG O2 Saturation VBG Base Excess Anion Gap 12 Estim Creat Clear Calc 77.9 77.9 Estimated GFR > 60 > 60 POC Glucose 166 H Random Glucose 157 H Lactic Acid Lactic Acid Fup @ 2Hr Calcium 8.0 L D Magnesium Total Bilirubin Direct Bilirubin AST ALT Alkaline Phosphatase Ammonia Total Creatine Kinase Troponin I High Sens Total Protein Albumin Lipase TSH Urine Color Urine Appearance Urine pH Ur Specific [place] Urine Protein Urine Glucose (UA) Urine Ketones Urine Blood Urine Nitrite Ur Leukocyte Esterase Urine RBC Urine WBC Ur Squamous Epith Cells Urine Bacteria Ethyl Alcohol COVID-19 (TENISHA) COVID-19 Ornicept 06/27/21 06/27/21 06/27/21 04:44 04:58 07:00 MCV 81.2 MCH 24.4 L MCHC 30.0 L RDW 14.6 Plt Count 285 D MPV 10.3 Immature Gran % (Auto) Neut % (Auto) Lymph % (Auto) [place] % (Auto) Eos % (Auto) Baso % (Auto) Lymph # (Auto) [place] # (Auto) Eos # (Auto) Baso # (Auto) Abs Immat Gran (auto) Absolute Neuts (auto) Absolute Nucleated RBC 0.000 Nucleated RBC % (auto) 0.0 PT INR APTT VBG pH VBG pCO2 VBG pO2 VBG HCO3 VBG O2 Saturation VBG Base Excess Anion Gap Estim Creat Clear Calc Estimated GFR POC Glucose 174 H Random Glucose Lactic Acid Lactic Acid Fup @ 2Hr Calcium Magnesium Total Bilirubin Direct Bilirubin AST ALT Alkaline Phosphatase Ammonia Total Creatine Kinase Troponin I High Sens Total Protein Albumin Lipase TSH Urine Color STRAW Urine Appearance HAZY Urine pH 6.0 Ur Specific [place] 1.020 Urine Protein TRACE Urine Glucose (UA) NEG Urine Ketones NEG Urine Blood 2+ H Urine Nitrite NEG Ur Leukocyte Esterase NEG Urine RBC 50-75 H Urine WBC 1-4 Ur Squamous Epith Cells 1+ Urine Bacteria 1+ Ethyl Alcohol COVID-19 (TENISHA) COVID-19 [employer] Com 06/27/21 11:12 MCV MCH MCHC RDW Plt Count MPV Immature Gran % (Auto) Neut % (Auto) Lymph % (Auto) [place] % (Auto) Eos % (Auto) Baso % (Auto) Lymph # (Auto) [place] # (Auto) Eos # (Auto) Baso # (Auto) Abs Immat Gran (auto) Absolute Neuts (auto) Absolute Nucleated RBC Nucleated RBC % (auto) PT INR APTT VBG pH VBG pCO2 VBG pO2 VBG HCO3 VBG O2 Saturation VBG Base Excess Anion Gap Estim Creat Clear Calc Estimated GFR POC Glucose 114 Random Glucose Lactic Acid Lactic Acid Fup @ 2Hr Calcium Magnesium Total Bilirubin Direct Bilirubin AST ALT Alkaline Phosphatase Ammonia Total Creatine Kinase Troponin I High Sens Total Protein Albumin Lipase TSH Urine Color Urine Appearance Urine pH Ur Specific [place] Urine Protein Urine Glucose (UA) Urine Ketones Urine Blood Urine Nitrite Ur Leukocyte Esterase Urine RBC Urine WBC Ur Squamous Epith Cells Urine Bacteria Ethyl Alcohol COVID-19 (TENISHA) COVID-19 Clin Com Assessment and Plan (1) Ulcer of right heel: Status: Acute (2) Recurrent squamous cell carcinoma: Status: Acute (3) Diabetic nephropathy associated with type 2 diabetes mellitus: Status: Acute (4) Adult failure to thrive: Status: Acute Assessment and Plan: ?66M presented with failure to thrive and worsening RLE wounds failure to thrive metabolic encephalopathy, due to dehydration and dysphagia from head and neck cancer after discussion with daughter and surgery decision made to transition to comfort care will discontinue antibiotics, can takes any comfort food or drink despite aspiratoin risk if he wishes, will try fentanyl patch for pain if having difficulty with morphine pills hospice eval will stop other non comfort related meds Quality Stroke Does the patient have a stroke diagnosis?: No VTE Prior VTE?: No VTE Risk Level:: Medical - moderate - high VTE Device Contraindication: Treatment Not Indicated VTE Drug Contraindication: N/A - Med Ordered
[2021-06-27] MEDS: fentaNYL 12 MCG PATCH.TD72 TRANSDERMA (12:10)
[2021-06-27] MEDS: Morphine Sulfate 10 MG/ML CARTRIDGE 5 MG IVPUSH ×3 (13:52→21:41)
[2021-06-27] MEDS: Atropine Sulfate 1 % Ophth Sol 2 ML BOTTLE 2 DROP SUBLINGUAL (13:53)
[2021-06-27 14:37] VITALS: RESP 16
[2021-06-27 19:01] VITALS: RESP 19
[2021-06-27 20:20] VITALS: BP 158/66; PULSE 97; RESP 18; TEMP 37.2; O2SAT 95
--- NOTE | 2021-06-27 22:26 | PM.EVENT ---
Event Note Date of Service: 06/27/21 Event Note: Pt passed at6 10:12 pm
--- NOTE | 2021-06-30 09:44 | PM.DDS ---
Discharge Sum: Prov Provider Primary care physician: Adrienne Nava MD Consults: 06/27/21 09:09 Consult to General Surgery Routine Consulting Provider: Pablito Garcia Reason for consultation: Gtube Discharge Sum: Diag Contributing Factors (1) Recurrent squamous cell carcinoma: (2) Ulcer of right heel: (3) Diabetic nephropathy associated with type 2 diabetes mellitus: (4) Adult failure to thrive: Discharge Sum: Summary Date and Time Date of admission: 06/26/21 18:45 Date of : 06/27/21 Summary Details: patient was admitted for failure to thrive due to reccurent head and neck squamous cell carcinoma as well as right heel pressure ulcer. he was initially started on iv fluids and antibiotics. Due to poor prognosis and severe discomfort, discussions were had around goals of care, gastrostomy tube, comfort care. decision was made to transition to comfort care. patient peacefully 06/27/2021. Additional Data Attending physician: Arnaud Epperson MD
== END 2021-06-27 22:12 | disposition expired | DRG 637 ==
LOC: HO.ED 17:04 → HO.EDOVER 18:49 → HO.IMC 19:42
PROVIDERS: Admitting Provider Internal Medicine; Emergency Provider Emergency Medicine; PCP Internal Medicine; Visit Provider Internal Medicine
DX: E11.621 Type 2 diabetes mellitus with foot ulcer (principal); G93.41 Metabolic encephalopathy; L97.419 Non-pressure chronic ulcer of right heel and midfoot with unspecified severity; Z94.0 Kidney transplant status; Z20.822 Contact with and (suspected) exposure to COVID-19; E11.21 Type 2 diabetes mellitus with diabetic nephropathy; C76.0 Malignant neoplasm of head, face and neck; R13.10 Dysphagia, unspecified; E86.0 Dehydration; Z89.512 Acquired absence of left leg below knee; Z79.52 Long term (current) use of systemic steroids; R62.7 Adult failure to thrive; Z68.21 Body mass index [BMI] 21.0-21.9, adult; Z79.4 Long term (current) use of insulin; Z79.899 Other long term (current) drug therapy; Z51.5 Encounter for palliative care
CPT/HCPCS: 36415; 70450; 70491; 71045; 71275; 73620; 80048; 80076; 81001; 82077; 82140; 82550; 82565; 82803; 82947; 83605; 83690; 83735; 84443; 84484; 85025; 85027; 85610; 85730; 87040; 87147; 87205; 87635; 92610; 93005; 96361; 96367; 96375; 96376; 99285; C1758; J1650; J2060; J2270; J2543; J3370; J3411; Q9967